=== PATIENT | male | born 1995 | race African-American/Black ===

== ENCOUNTER 2016-12-29 01:15 | Emergency (ER) ==
[2016-12-29 01:38] VITALS: BP 138/90
--- NOTE | 2016-12-29 01:46 | PROVIDER DOCUMENTATION ---
HPI-EENT General - General Chief Complaint: Toothache Stated Complaint: TOOTHACHE Time Seen by Provider: 12/29/16 01:37 Source: patient Allergies/Adverse Reactions: Patient Allergies Allergy/AdvReac Type Severity Reaction Status Date / Time Penicillins Allergy Unknown Verified 10/02/16 13:14 Home Medications: Home Medication List Medication Instructions Recorded Confirmed Last Taken Type Acetaminophen with Codeine 1 each PO Q6H PRN PRN #12 tablet 12/29/16 Unknown Rx [Tylenol with Codeine #3] Clindamycin [Cleocin] 300 mg PO Q6HR #80 capsule 12/29/16 Unknown Rx Naproxen 500 mg PO BID PRN PRN #20 tablet 12/29/16 Unknown Rx - History of Present Illness-EENT General Nature of Presenting Problem: 21 yo male presents to ER with c/o toothache. He states that he was woke up with toothache tonight. EENT Location: reports: dental Quality of Pain: reports: aching, throbbing Severity: reports: moderate Onset/Duration: reports: just prior to arrival Timing: reports: still present Prearrival Treatment: Initiated no prearrival treatment Associated Symptoms: reports: tooth pain Similar Symptoms Previously?: Yes Recently seen or treated by another doctor?: No - Throat/Dental Throat/Dental Problem Symptoms: reports: toothache Throat/Dental Problem Context: reports: dental decay, fractured tooth Review of Systems - Adult - REVIEW OF SYSTEMS - ADULT Constitutional: reports: no symptoms reported Eyes: reports: no symptoms reported Ears, Nose, Mouth & Throat: reports: see HPI, mouth/dental pain Cardiovascular: reports: no symptoms reported Respiratory: reports: no symptoms reported Gastrointestinal: reports: no symptoms reported Genitourinary: reports: no symptoms reported Musculoskeletal: reports: no symptoms reported Integumentary: reports: no symptoms reported Neurological: reports: no symptoms reported Psychiatric: reports: no symptoms reported Endocrine: reports: no symptoms reported Hematologic/Lymphatic: reports: no symptoms reported Allergic/Immunologic: reports: no symptoms reported All Other Systems: Reviewed and Negative Past History - Adult - PAST MEDICAL HISTORY-ADULT Review of Records: reports: Old Records Reviewed, Nursing Assessment Review, Medications Reviewed, Social history reviewed & non-contributory. Major Childhood Illnesses: reports: denies history - PRIOR SURGERIES/PROCEDURES Surgical/Procedure History: reports: orthopedic (extremity) - IMMUNIZATION STATUS Childhood Immunizations: See Nurse Assessment Flu Vaccine: See Nurse Assessment - FAMILY HISTORY Family History: reviewed, not pertinent - SOCIAL HISTORY Smoking: cigarettes, less than 1 pack/day (1/2 ppd) Provider spent 3-5 mins advising pt. on dangers of tobacco.: Discussed manners to quit use, and f/u contacts for add'l counseling. Substance Use: denies Alcohol Use Frequency: never Living Situation: family Physical Exam- EENT - Physical Exam EENT Initial Vital Signs Reviewed: Yes General Appearance: appears well, alert, no apparent distress Eye Exam: bilateral eye: normal inspection, PERRL Nasal Exam: normal inspection Throat Exam: dental tenderness (decayed tooth number 11; swelling surrounding tooth wide spread dental decay) Respiratory: no respiratory distress Cardiovascular: normal peripheral pulses Integumentary: normal color, normal turgor, warm/dry Neurologic: grossly normal Psych/Mental Status: normal mood/affect, normal thought content, normal thought process, oriented x 3 Progress - PLAN OF CARE/RESULTS Progress/Plan/Lab Results: 0145-Discussed the need to follow up with dentist. Patient states he has a dentist. Vital Signs - 24 hr 12/29/16 01:35 Temperature 98.2 F Pulse Rate 61 Respiratory 18 Rate Blood Pressure 138/90 O2 Sat by Pulse 100 Oximetry Orders Category Date Time Status Acetaminophen with Codeine [Tylenol with Codeine #3] Med 12/29/16 01:49 Once 1 each PO NOW ONE Clindamycin [Cleocin] Med 12/29/16 01:49 Once 300 mg PO NOW ONE Departure - Departure Time of Disposition Order: 01:51 DIAGNOSIS: Dental abscess, Dental caries Disposition: HOME 01 Certified Medical Emergency: Emergent Condition: Good Additional Instructions: Follow up with your dentist. Take medications as prescribed. Apply heat to area. ED Follow Up Instructions: You have been treated by a care provider in the Emergency Department. These instructions are being provided to you so you can have an understanding of how to care for yourself upon discharge. Upon discharge from the Emergency Department, you are responsible for making arrangements for follow-up care by a physician of your choice. Take all prescribed medications as directed. Return to the Emergency Department immediately for any new or worsening symptoms. You may call the Physician Referral phone number at [phone] to obtain a list of Physicians who are taking new patients. Prescriptions: Clindamycin [Cleocin] 300 mg PO Q6HR #80 capsule Naproxen 500 mg PO BID PRN PRN #20 tablet PRN Reason: Pain Acetaminophen with Codeine [Tylenol with Codeine #3] 1 each PO Q6H PRN PRN #12 tablet PRN Reason: Pain Attestation - Physician/ ARIAS Attestation Patient care was provided by Advanced Practice Provider:: Yes Advanced Practice Provider:: Hilary Silva Advanced Practice Provider documentation review:: The Mid-level provider documentation, treatment plan and medical decision making was reviewed by the physician who agrees with all treatment and medical decision making by the MLP.
[2016-12-29] MEDS ORDERED: TYLENOL WITH CODEINE #3 PO ONE (01:49)
[2016-12-29] MEDS ORDERED: CLEOCIN PO ONE (01:49)
[2016-12-29] MEDS ORDERED: CLEOCIN ONE (02:02)
== END 2016-12-29 02:08 | disposition home or self-care (01) ==
LOC: P.ED 01:15
DX: K04.7 Periapical abscess without sinus (principal); K02.9 Dental caries, unspecified; K08.89 Other specified disorders of teeth and supporting structures; S02.5XXA Fracture of tooth (traumatic), initial encounter for closed fracture; R22.0 Localized swelling, mass and lump, head; F17.210 Nicotine dependence, cigarettes, uncomplicated; Z71.6 Tobacco abuse counseling